=== PATIENT | female | born 1975 | race Caucasian/White ===

== ENCOUNTER 2018-08-02 18:10 | Emergency (ER) | payer BC ==
[2018-08-02] MEDS ORDERED: METOCLOPRAMIDE 10 MG/2mL INJ ONE ×2 (19:33→21:08)
[2018-08-02] MEDS ORDERED: ONDANSETRON 4 MG/2 ML VIAL ONE (19:33)
[2018-08-02] MEDS ORDERED: MECLIZINE HCL 12.5 MG TAB ONE (19:33)
[2018-08-02] MEDS ORDERED: NA CHLORIDE 0.9% 1,000 ML ONE (19:34)
--- NOTE | 2018-08-02 19:47 | RAD REPORT ---
EXAM DESCRIPTION: CT - Head Brain Wo Cont - 08/02/2018 7:41 pm CLINICAL HISTORY: elevated blood pressure;Dizziness Headache COMPARISON: No comparisons TECHNIQUE: All CT scans are performed using dose optimization technique as appropriate and may inclu de automated exposure control or mA/KV adjustment according to patient size. FINDINGS: No intracranial hemorrhage, hydrocephalus or extra-axial fluid collection.No areas of brai n edema or evidence of midline shift. The paranasal sinuses and mastoids are clear. The calvarium is intact. IMPRESSION: No acute intracranial abnormality.
[2018-08-02 19:50] LABS: Urine Blood TRACE (NEG); Urine Glucose NEGATIVE (NEG); Urine Protein NEGATIVE (NEG); Urine pH 6.5 (5.0-7.0)
[2018-08-02 19:55] LABS: Absolute Lymphocytes (CBC) 2.1 K/uL (0.7-4.9); Absolute Monocytes 0.4 K/uL (0.1-1.3); Absolute Neutrophil 4.4 K/uL (1.8-8.0); Basophils % 0.6 % (0-1.3); Hematocrit 43.7 % (36.0-45.0); Lymphocytes % 29.1 % (15.3-44.8); MCH 30.4 pg (27.0-35.0); MCV 90.8 fL (80-100); MPV 7.9 fL (7.6-11.3); Monocytes % 5.6 % (3.3-12.3); Protime INR 0.84; RBC Red Blood Cell Count 4.81 M/uL (3.86-4.86)
[2018-08-02 20:19] LABS: ALT/SGPT 28 U/L (12-78); AST/SGOT 19 U/L (15-37); Albumin 4.8 g/dL (3.4-5.0); Alkaline Phosphatase 68 U/L (45-117); BUN Blood Urea Nitrogen 10 mg/dL (7-18); Bicarbonate 27 mmol/L (21-32); Bilirubin Direct 0.1 mg/dL (0-0.2); Bilirubin Total 0.4 mg/dL (0.2-1.0); Glucose Level 91 mg/dL (74-106); Magnesium 2.4 mg/dL (1.8-2.4); Potassium 3.7 mmol/L (3.5-5.1); Protein, Total 8.5 g/dL (6.4-8.2); Sodium Level 143 mmol/L (136-145); Troponin (Emerg Dept Use Only) < 0.02 ng/mL (0.0-0.045)
[2018-08-02 20:20] LABS: Urine Bacteria 20-50 /HPF (<20); Urine RBC <5 /HPF (NONE SEEN)
[2018-08-02 20:21] LABS: Urine Culture Reflex Order NOT NEEDED
[2018-08-02] MEDS ORDERED: DEXAMETHASONE 10 MG/ML VIAL ONE (21:07)
[2018-08-02] MEDS ORDERED: NA CHLORIDE 0.9% 500 ML ONE (21:08)
[2018-08-02] MEDS ORDERED: NA CHLORIDE 0.9% 50 ML IV ONE (21:08)
--- NOTE | 2018-08-02 21:34 | EDPHYS ---
Physician Documentation [facility] Name: Nunu Barnett Age: 42 yrs Sex: Female : 1975 Arrival Date: 08/02/2018 Time: 18:13 Bed 17 Private MD: Mary Emery K ED Physician Roberto Gee HPI: 08/02 19:25 This 42 yrs old Female presents to ER via Ambulatory with complaints of High cp Blood Pressure, Dizziness, Fever. 19:25 The patient has elevated blood pressure and discovered this at home. Onset: The cp symptoms/episode began/occurred today. Associated signs and symptoms: Pertinent positives: dizziness, headache, nausea, subjective fever, Pertinent negatives: chest pain, visual changes, vomiting. 19:25 Severity of symptoms: in the emergency department the blood pressure is unchanged. 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 - Social history:: Smoking status: Patient/guardian denies using tobacco. - Ebola Screening: : Patient negative for fever greater than or equal to 101.5 degrees Fahrenheit, and additional compatible Ebola Virus Disease symptoms Patient denies exposure to infectious person Patient denies travel to an Ebola-affected area in the 21 days before illness onset No symptoms or risks identified at this time. ROS: 19:33 Constitutional: Negative for body aches, chills, fever, poor PO intake. cp 19:33 Eyes: Negative for injury, pain, redness, and discharge. cp 19:33 ENT: Negative for drainage from ear(s), ear pain, sore throat, difficulty swallowing, difficulty handling secretions. 19:33 Neck: Negative for pain with movement, pain at rest, stiffness, swollen nodes, tenderness. 19:33 Cardiovascular: Negative for chest pain, edema, palpitations. 19:33 Respiratory: Negative for cough, shortness of breath, wheezing. 19:33 Abdomen/GI: Positive for nausea, Negative for abdominal pain, vomiting, diarrhea, constipation. 19:33 : Negative for urinary symptoms. 19:33 Neuro: Positive for dizziness, headache, Negative for altered mental status, numbness, weakness. 19:33 All other systems are negative. Exam: 19:35 ECG was reviewed by the Attending Physician. cp 19:38 Constitutional: The patient appears in no acute distress, alert, awake, cp non-diaphoretic, non-toxic, well developed, well nourished. 19:38 Head/Face: Normocephalic, atraumatic. Eyes: Pupils equal round and reactive to light, cp extra-ocular motions intact. Lids and lashes normal. Conjunctiva and sclera are non-icteric and not injected. Cornea within normal limits. Periorbital areas with no swelling, redness, or edema. ENT: Nares patent. No nasal discharge, no septal abnormalities noted. Tympanic membranes are normal and external auditory canals are clear. Oropharynx with no redness, swelling, or masses, exudates, or evidence of obstruction, uvula midline. Mucous membranes moist. Neck: Trachea midline, no thyromegaly or masses palpated, and no cervical lymphadenopathy. Supple, full range of motion without nuchal rigidity, or vertebral point tenderness. No Meningismus. Chest/axilla: Normal chest wall appearance and motion. Nontender with no deformity. No lesions are appreciated. 19:38 Cardiovascular: Rate: normal, Rhythm: regular, Pulses: Pulses are 2+ in right radial artery and left radial artery. Heart sounds: murmur, not appreciated, rub, not appreciated, gallop, not appreciated, Edema: is not appreciated, JVD: is not appreciated. 19:38 Respiratory: the patient does not display signs of respiratory distress, Respirations: normal, no use of accessory muscles, no retractions, no splinting, no tachypnea, labored breathing, is not present, Breath sounds: are clear throughout, no decreased breath sounds, no stridor, no wheezing. 19:38 Abdomen/GI: Inspection: abdomen appears normal, Bowel sounds: active, all quadrants, Palpation: abdomen is soft and non-tender, in all quadrants. 19:38 Back: pain, is absent, ROM is normal. 19:38 Skin: cellulitis, is not appreciated, no rash present. 19:38 Neuro: Orientation: to person, place \T\ time. Mentation: lucid, able to follow commands, Cerebellar function: is grossly normal, Motor: moves all fours, strength is normal, Sensation: is normal. Vital Signs: 18:22 BP 179 / 105; Pulse 84; Resp 17; Temp 97.7; Pulse Ox 99% on R/A; Weight 56.7 kg; Height aj 5 ft. 7 in. (170.18 cm); 19:30 BP 158 / 90; Pulse 78; Resp 15 S; Pulse Ox 99% on R/A; cc3 20:05 BP 147 / 104; Pulse 71; Resp 13 S; Pulse Ox 100% on R/A; cc3 21:29 BP 137 / 87; Pulse 91; Resp 14 S; Pulse Ox 98% on R/A; cc3 18:22 Body Mass Index 19.58 (56.70 kg, 170.18 cm) aj MDM: 19:11 Patient medically screened. cp 21:33 Data reviewed: vital signs, nurses notes, lab test result(s), EKG, radiologic studies, cp CT scan. 21:33 Differential diagnosis: hypertensive crisis, Malignant HTN, CVA, intracerebral cp hemorrhage. Test interpretation: by ED physician or midlevel provider: ECG. Counseling: I had a detailed discussion with the patient and/or guardian regarding: the historical points, exam findings, and any diagnostic results supporting the discharge/admit diagnosis, the presence of at least one elevated blood pressure reading (>120/80) during this emergency department visit, lab results, radiology results, the need for outpatient follow up, a family practitioner, to return to the emergency department if symptoms worsen or persist or if there are any questions or concerns that arise at home. Response to treatment: the patient's symptoms have markedly improved after treatment, VSS. Blood pressure and headache improved. Will discharge to home for continued monitoring. 08/02 19:18 Order name: PT-INR; Complete Time: 20:23 cp 08/02 19:18 Order name: Basic Metabolic Panel; Complete Time: 20:23 cp 08/02 20:23 Interpretation: Normal except: CL 109; GFR 79. cp 08/02 19:18 Order name: CBC with Diff; Complete Time: 20:23 cp 08/02 19:18 Order name: LFT's; Complete Time: 20:23 cp 08/02 19:18 Order name: Magnesium; Complete Time: 20:23 cp 08/02 19:18 Order name: Troponin (emerg Dept Use Only); Complete Time: 20:23 cp 08/02 19:19 Order name: CT Head Brain wo Cont; Complete Time: 19:50 cp 08/02 19:50 Interpretation: Report reviewed. cp 08/02 19:42 Order name: Urine Microscopic Only; Complete Time: 20:23 cc 08/02 20:24 Interpretation: Normal except: UWBC 5-10; UBACT 20-50; SQEPI 10-20. cp 08/02 19:42 Order name: Urine Culture cc 08/02 19:48 Order name: Urine Dipstick--Ancillary (enter results); Complete Time: 20:23 ms 08/02 20:24 Interpretation: UBLD TRACE; UESTR TRACE. cp 08/02 19:48 Order name: Urine --Ancillary (enter results); Complete Time: 20:23 ms 08/02 19:18 Order name: EKG; Complete Time: 19:18 cp 08/02 19:18 Order name: Cardiac monitoring; Complete Time: 19:40 cp 08/02 19:18 Order name: EKG - Nurse/Tech; Complete Time: 19:40 cp 08/02 19:18 Order name: IV Saline Lock; Complete Time: 19:40 cp 08/02 19:18 Order name: Labs collected and sent; Complete Time: 19:40 cp 08/02 19:18 Order name: O2 Per Protocol; Complete Time: 19:40 cp 08/02 19:18 Order name: O2 Sat Monitoring; Complete Time: 19:40 cp 08/02 19:18 Order name: Urine Dipstick-Ancillary (obtain specimen); Complete Time: 19:42 cp 08/02 19:18 Order name: Urine Test (obtain specimen); Complete Time: 19:42 cp EC:35 Rate is 69 beats/min. Rhythm is regular. [place] interval is normal. QRS interval is normal. cp QT interval is normal. T waves are Inverted in leads V2, V3. Interpreted by me. Reviewed by me. Administered Medications: 19:25 Drug: Meclizine 25 mg Route: PO; cc3 20:00 Follow up: Response: No adverse reaction cc3 19:30 Drug: Zofran 4 mg Route: IVP; Site: left antecubital; cc3 20:00 Follow up: Response: No adverse reaction; Nausea is decreased cc3 19:30 Drug: NS 0.9% 1000 ml Route: IV; Rate: 1 bolus; Site: left antecubital; cc3 20:45 Follow up: Response: No adverse reaction; IV Status: Completed infusion; IV Intake: cc3 1000ml 19:39 Not Given (Patient Refused): Reglan 10 mg IVP once; over 1 to 2 minutes cc3 21:00 Drug: NS 0.9% 500 ml Route: IV; Rate: bolus; Site: left antecubital; cc3 21:45 Follow up: Response: No adverse reaction; IV Status: Completed infusion; IV Intake: cc3 500ml 21:05 Drug: Decadron - Dexamethasone 10 mg Route: IVP; Site: left antecubital; cc3 21:45 Follow up: Response: No adverse reaction cc3 21:08 Drug: Reglan 20 mg Route: IVP; Site: left antecubital; cc3 21:45 Follow up: Response: No adverse reaction; Pain is decreased cc3 Disposition: 08/03 13:21 Co-signature as Attending Physician, Roberto Gee MD I agree with the assessment and kdr plan of care. Disposition: 08/02/18 21:34 Discharged to Home. Impression: Headache, Hypertensive heart disease, Dizziness and giddiness. - Condition is Stable. - Discharge Instructions: Dizziness, General Headache Without Cause, How to Take Your Blood Pressure, Ulrt-bi-[id number], Managing Your Hypertension. - Prescriptions for Fiorinal 50- 325-40 mg Oral Capsule - take 1 capsule by ORAL route every 4 hours As needed - not to exceed 6 capsules per day; 20 capsule. Meclizine 25 mg Oral Tablet - take 1 tablet by ORAL route every 8 hours As needed; 30 tablet. Zofran 4 mg Oral Tablet - take 1 tablet by ORAL route every 12 hours As needed; 20 tablet. - Medication Reconciliation Form, Thank You Letter, Antibiotic Education, Prescription Opioid Use form. - Follow up: Mary Emery MD; When: 2 - 3 days; Reason: Recheck today's complaints. - Problem is new. - Symptoms have improved. Signatures: Dispatcher [employer] EDMS Jamia Arce RN RN Roberto Sawyer MD MD kdr Paulie Mehta PA PA Evelia Benoit cc3 Corrections: (The following items were deleted from the chart) 08/02 21:34 21:34 08/02/2018 21:34 Discharged to Home. Impression: Headache; Hypertensive heart cp disease. Condition is Stable. Forms are Medication Reconciliation Form, Thank You Letter, Antibiotic Education, Prescription Opioid Use. Follow up: Mary Emery; When: 2 - 3 days; Reason: Recheck today's complaints. Problem is new. Symptoms have improved. cp 21:50 21:34 08/02/2018 21:34 Discharged to Home. Impression: Headache; Hypertensive heart cc3 disease; Dizziness and giddiness. Condition is Stable. Discharge Instructions: Dizziness, General Headache Without Cause, How to Take Your Blood Pressure, [id number], Managing Your Hypertension. Prescriptions for Fiorinal 50-325-40 mg Oral Capsule - take 1 capsule by ORAL route every 4 hours As needed - not to exceed 6 capsules per day; 20 capsule, Meclizine 25 mg Oral Tablet - take 1 tablet by ORAL route every 8 hours As needed; 30 tablet, Zofran 4 mg Oral Tablet - take 1 tablet by ORAL route every 12 hours As needed; 20 tablet. and Forms are Medication Reconciliation Form, Thank You Letter, Antibiotic Education, Prescription Opioid Use. Follow up: Mary Emery; When: 2 - 3 days; Reason: Recheck today's complaints. Problem is new. Symptoms have improved. cp
--- NOTE | 2018-08-02 21:34 | ER ---
Nurse's Notes [facility] Name: Nunu Barnett Age: 42 yrs Sex: Female : 1975 Arrival Date: 08/02/2018 Time: 18:13 Bed 17 Private MD: Mary Emery K Diagnosis: Headache;Hypertensive heart disease;Dizziness and giddiness Presentation: 08/02 18:19 Presenting complaint: Patient states: Headache, dizziness, warm ears, and high blood aj pressure that started today. Transition of care: patient was not received from another setting of care. Onset of symptoms was August 02, 2018. Risk Assessment: Do you want to hurt yourself or someone else? Patient reports no desire to harm self or others. Initial Sepsis Screen: Does the patient meet any 2 criteria? No. Patient's initial sepsis screen is negative. Does the patient have a suspected source of infection? No. Patient's initial sepsis screen is negative. Care prior to arrival: None. 18:19 Method Of Arrival: Ambulatory aj 18:19 Acuity: COLLEEN 2 aj Triage Assessment: 18:22 General: Appears in no apparent distress. comfortable, Behavior is calm, cooperative, aj appropriate for age. Pain: Complains of pain in face and scalp. 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 Full function Gait is steady, Speech is normal, Facial symmetry appears normal, Pupils are PERRLA, Reports headache. Respiratory: Airway is patent Respiratory effort is even, unlabored, Respiratory pattern is regular, symmetrical. Derm: Skin is intact, is healthy with good turgor, Skin is pink, warm \T\ dry. normal. 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 - Social history:: Smoking status: Patient/guardian denies using tobacco. - Ebola Screening: : Patient negative for fever greater than or equal to 101.5 degrees Fahrenheit, and additional compatible Ebola Virus Disease symptoms Patient denies exposure to infectious person Patient denies travel to an Ebola-affected area in the 21 days before illness onset No symptoms or risks identified at this time. Screenin:05 Abuse screen: Denies threats or abuse. Denies injuries from another. Nutritional cc3 screening: No deficits noted. Tuberculosis screening: No symptoms or risk factors identified. Fall Risk Ambulatory Aid- None/Bed Rest/Nurse Assist (0 pts). Gait- Normal/Bed Rest/Wheelchair (0 pts) Mental Status- Oriented to own ability (0 pts). Assessment: 19:05 Reassessment: Patient appears in no apparent distress at this time. Patient and/or cc3 family updated on plan of care and expected duration. Pain level reassessed. Patient is alert, oriented x 3, equal unlabored respirations, skin warm/dry/pink. Received this female patient from morning shift [facility] as a case of high blood pressure reading, dizziness and fever; still to be seen by the physician. 19:45 Reassessment: Patient came back from CT scan department and CT scan of head procedure cc3 was done as ordered, awaiting result. 20:30 Reassessment: Patient appears in no apparent distress at this time. Patient and/or cc3 family updated on plan of care and expected duration. Pain level reassessed. Patient is alert, oriented x 3, equal unlabored respirations, skin warm/dry/pink. 21:45 Reassessment: Patient appears in no apparent distress at this time. Patient and/or cc3 family updated on plan of care and expected duration. Pain level reassessed. Patient is alert, oriented x 3, equal unlabored respirations, skin warm/dry/pink. MILENA Mehta discharged home the patient with prescription given. IV cannula removed and patient left ER vitally stable and ambulatory with her . Vital Signs: 18:22 BP 179 / 105; Pulse 84; Resp 17; Temp 97.7; Pulse Ox 99% on R/A; Weight 56.7 kg; Height aj 5 ft. 7 in. (170.18 cm); 19:30 BP 158 / 90; Pulse 78; Resp 15 S; Pulse Ox 99% on R/A; cc3 20:05 BP 147 / 104; Pulse 71; Resp 13 S; Pulse Ox 100% on R/A; cc3 21:29 BP 137 / 87; Pulse 91; Resp 14 S; Pulse Ox 98% on R/A; cc3 18:22 Body Mass Index 19.58 (56.70 kg, 170.18 cm) aj ED Course: 18:13 Patient arrived in ED. mr 18:14 Mary Emery MD is Private Physician. mr 18:19 Triage completed. aj 18:22 Arm band placed on left wrist. Patient placed in an exam room. aj 19:05 Patient has correct armband on for positive identification. Bed in low position. Call cc3 light in reach. Side rails up X 1. 19:05 secured entrance monitor on. Pulse ox on. NIBP on. cc3 19:11 Paulie Mehta PA is PHCP. cp 19:11 Roberto Gee MD is Attending Physician. cp 19:30 Initial lab(s) drawn, by hi, sent to lab. Inserted saline lock: 20 gauge in left cc antecubital area, using aseptic technique. Blood collected. 19:37 Urine collected: clean catch specimen, clear. cc 19:41 CT completed. Patient tolerated procedure well. Patient moved to CT. Patient moved back nv from CT. 19:42 CT Head Brain wo Cont In Process Unspecified. EDMS 19:43 EKG done, by ED staff, reviewed by Paulie ABBOTT. cc 21:33 Mary Emery MD is Referral Physician. cp 21:45 No provider procedures requiring assistance completed. IV discontinued, intact, cc3 bleeding controlled, No redness/swelling at site. Pressure dressing applied. Administered Medications: 19:25 Drug: Meclizine 25 mg Route: PO; cc3 20:00 Follow up: Response: No adverse reaction cc3 19:30 Drug: Zofran 4 mg Route: IVP; Site: left antecubital; cc3 20:00 Follow up: Response: No adverse reaction; Nausea is decreased cc3 19:30 Drug: NS 0.9% 1000 ml Route: IV; Rate: 1 bolus; Site: left antecubital; cc3 20:45 Follow up: Response: No adverse reaction; IV Status: Completed infusion; IV Intake: cc3 1000ml 19:39 Not Given (Patient Refused): Reglan 10 mg IVP once; over 1 to 2 minutes cc3 21:00 Drug: NS 0.9% 500 ml Route: IV; Rate: bolus; Site: left antecubital; cc3 21:45 Follow up: Response: No adverse reaction; IV Status: Completed infusion; IV Intake: cc3 500ml 21:05 Drug: Decadron - Dexamethasone 10 mg Route: IVP; Site: left antecubital; cc3 21:45 Follow up: Response: No adverse reaction cc3 21:08 Drug: Reglan 20 mg Route: IVP; Site: left antecubital; cc3 21:45 Follow up: Response: No adverse reaction; Pain is decreased cc3 Intake: 20:45 IV: 1000ml; Total: 1000ml. cc3 21:45 IV: 500ml; Total: 1500ml. cc3 Outcome: 21:34 Discharge ordered by MD. cp 21:45 Discharged to home ambulatory, with family. cc3 21:45 Condition: stable 21:45 Discharge instructions given to patient, family, Instructed on discharge instructions, follow up and referral plans. medication usage, Demonstrated understanding of instructions, follow-up care, medications, Prescriptions given X 3. 21:50 Patient left the ED. cc3 Signatures: Dispatcher [employer] Jamia Sosa RN RN aj Rivera, Mary mr Christian, Jeanette cc Paulie Mehta PA PA cp Jordan, Evelia Rivera cc3 Corrections: (The following items were deleted from the chart) 20:02 19:40 Reassessment: Patient went for CT scan of the head. cc3 cc3 20:04 19:05 Patient has correct armband on for positive identification. Bed in low position. cc3 Call light in reach. Side rails up X 1. cc3
--- NOTE | 2018-08-03 08:33 | EKG ---
Test Date: 2018-08-02 Test Time: 19:30:00 Body Shop Technician: RANDY MEASUREMENT RESULTS: Intervals: Rate: 69 FL: 146 QRSD: 82 QT: 382 QTc: 409 [place]: P: 73 FL: 146 QRS: 66 T: 48 INTERPRETIVE STATEMENTS: Normal sinus rhythm with sinus arrhythmia Possible Left atrial enlargement Borderline ECG Compared to ECG 03/08/2016 09:12:27 No significant changes Electronically Signed On 08-03-18 08:33:11 CDT by Mega Yee
== END 2018-08-02 21:50 | disposition home or self-care (01) ==
LOC: ER 18:10
DX: I11.9 Hypertensive heart disease without heart failure (principal); R51 Headache; Z88.0 Allergy status to penicillin; Z88.2 Allergy status to sulfonamides; Z88.3 Allergy status to other anti-infective agents; Z88.5 Allergy status to narcotic agent
CPT/HCPCS: 36415; 70450; 80048; 80076; 81003; 81015; 81025; 83735; 84484; 85025; 85610; 87086; 87088; 93005; 96361; 96374; 96375; 99285; J1100; J2405; J2765; J7030

== ENCOUNTER 2018-08-27 21:08 | Emergency (ER) | payer BC ==
[2018-08-27] MEDS ORDERED: IBUPROFEN 100 MG/5 ML UCUP ONE (21:33)
[2018-08-27] MEDS ORDERED: DEXAMETHASONE 4 MG/ML VIAL ONE (21:33)
--- NOTE | 2018-08-27 23:11 | ER ---
Nurse's Notes [facility] Name: Nunu Barnett Age: 43 yrs Sex: Female : 1975 Arrival Date: 08/27/2018 Time: 21:09 Bed 19 Private MD: Mary Emery K Diagnosis: Allergy, unspecified Presentation: 08/27 21:19 Presenting complaint: Patient states: "Within the past hour, it's hard for me to lp1 breathe or swallow"; States having monthly "allergy shot" today; Benadryl last taken at 1930; No drooling noted. Transition of care: patient was not received from another setting of care. Onset: The symptoms/episode began/occurred 1 hour(s) ago. Anaphylaxis evaluation, no signs or symptoms of anaphylaxis were noted. Onset of symptoms was August 27, 2018 at 20:30. Risk Assessment: Do you want to hurt yourself or someone else? Patient reports no desire to harm self or others. Initial Sepsis Screen: Does the patient meet any 2 criteria? No. Patient's initial sepsis screen is negative. Does the patient have a suspected source of infection? No. Patient's initial sepsis screen is negative. Care prior to arrival: None. 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 - Social history:: Smoking status: Patient/guardian denies using tobacco. - Ebola Screening: : No symptoms or risks identified at this time. Screenin:21 Abuse screen: Denies threats or abuse. Denies injuries from another. Nutritional rv screening: No deficits noted. Tuberculosis screening: No symptoms or risk factors identified. Fall Risk None identified. Assessment: 21:20 General: Appears in no apparent distress. uncomfortable, Behavior is calm, cooperative. rv Pain: Denies pain. Neuro: Level of Consciousness is awake, alert, obeys commands, Oriented to person, place, time, situation. Cardiovascular: Capillary refill < 3 seconds. Respiratory: Airway is patent Respiratory effort is even, Breath sounds are clear bilaterally. GI: No signs and/or symptoms were reported involving the gastrointestinal system. : No signs and/or symptoms were reported regarding the genitourinary system. EENT: No signs and/or symptoms were reported regarding the EENT system. Derm: Skin is intact. Musculoskeletal: No signs and/or symptoms reported regarding the musculoskeletal system. 21:52 Reassessment: No changes from previously documented assessment. rv Vital Signs: 21:23 BP 168 / 92; Pulse 89; Resp 18; Pulse Ox 100% on R/A; Weight 58.06 kg; Height 5 ft. 7 lp1 in. (170.18 cm); Pain 0/10; 21:52 BP 147 / 78; Pulse 81 MON; Resp 17 S; Pulse Ox 100% on R/A; Pain 0/10; rv 21:23 Body Mass Index 20.05 (58.06 kg, 170.18 cm) lp1 ED Course: 21:09 Patient arrived in ED. am2 21:09 Mary Emery MD is Private Physician. am2 21:14 Danica Villalobos FNP-C is [facility]. snw 21:14 Paulie Pires MD is Attending Physician. snw 21:21 Triage completed. lp1 21:22 Arm band placed on right wrist. rv 21:22 Patient has correct armband on for positive identification. Bed in low position. Call rv light in reach. Side rails up X 1. Adult w/ patient. Pulse ox on. NIBP on. 23:10 Mary Emery MD is Referral Physician. snw 23:32 No provider procedures requiring assistance completed. Patient did not have IV access rv during this emergency room visit. Administered Medications: 21:28 Drug: Decadron - Dexamethasone 10 mg {Note: PO. mixed with motrin..} Route: IVP; Site: rv Other; 23:32 Follow up: Response: No adverse reaction rv 21:28 Drug: Motrin Suspension 4 tsp Route: PO; rv 23:32 Follow up: Response: No adverse reaction rv Outcome: 23:10 Discharge ordered by . dave 23:32 Discharged to home ambulatory. rv 23:32 Condition: good 23:32 Discharge instructions given to patient, Instructed on discharge instructions, follow up and referral plans. medication usage, Demonstrated understanding of instructions, follow-up care, medications, Prescriptions given X 2. 23:33 Patient left the ED. rv Signatures: Danica Villalobos, PROPERTY INSURANCE INSPECTOR-C PROPERTY INSURANCE INSPECTOR-Csnw Diane Reyes, RN RN lp1 Jamia Jones am2 David Peace, RN RN rv
--- NOTE | 2018-08-27 23:11 | EDPHYS ---
Physician Documentation [facility] Name: Nunu Barnett Age: 43 yrs Sex: Female : 1975 Arrival Date: 08/27/2018 Time: 21:09 Bed 19 Private MD: Mary Emery K ED Physician Paulie Pires HPI: 08/27 21:46 This 43 yrs old Female presents to ER via Ambulatory with complaints of snw Difficulty Swallowing, Allergic Reaction. 21:46 The patient presents with dysphagia, of both solids and liquids. The patient describes snw throat pain as scratchy. Onset: The symptoms/episode began/occurred gradually, today, s/p allergy shot, has been getting the shots since Oct. Severity of symptoms: At their worst the symptoms were moderate. Associated signs and symptoms: Pertinent positives: dysphagia. The patient has not experienced similar symptoms in the past. as noted. 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 - Social history:: Smoking status: Patient/guardian denies using tobacco. - Ebola Screening: : No symptoms or risks identified at this time. ROS: 21:31 Constitutional: Negative for fever, chills, and weight loss, Eyes: Negative for injury, snw pain, redness, and discharge, Neck: Negative for injury, pain, and swelling, Cardiovascular: Negative for chest pain, palpitations, and edema, Respiratory: Negative for shortness of breath, cough, wheezing, and pleuritic chest pain, Abdomen/GI: Negative for abdominal pain, nausea, vomiting, diarrhea, and constipation, Back: Negative for injury and pain, : Negative for injury, bleeding, discharge, and swelling, MS/Extremity: Negative for injury and deformity, Skin: Negative for injury, rash, and discoloration, Neuro: Negative for headache, weakness, numbness, tingling, and seizure, Psych: Negative for depression, anxiety, suicide ideation, homicidal ideation, and hallucinations. 21:31 ENT: Positive for difficulty swallowing. Exam: 21:31 Constitutional: This is a well developed, well nourished patient who is awake, alert, snw and in no acute distress. Head/Face: Normocephalic, atraumatic. Eyes: Pupils equal round and reactive to light, extra-ocular motions intact. Lids and lashes normal. Conjunctiva and sclera are non-icteric and not injected. Cornea within normal limits. Periorbital areas with no swelling, redness, or edema. Neck: Trachea midline, no thyromegaly or masses palpated, and no cervical lymphadenopathy. Supple, full range of motion without nuchal rigidity, or vertebral point tenderness. No Meningismus. Chest/axilla: Normal chest wall appearance and motion. Nontender with no deformity. No lesions are appreciated. Cardiovascular: Regular rate and rhythm with a normal S1 and S2. No gallops, murmurs, or rubs. Normal PMI, no JVD. No pulse deficits. Respiratory: Lungs have equal breath sounds bilaterally, clear to auscultation and percussion. No rales, rhonchi or wheezes noted. No increased work of breathing, no retractions or nasal flaring. Abdomen/GI: Soft, non-tender, with normal bowel sounds. No distension or tympany. No guarding or rebound. No evidence of tenderness throughout. Back: No spinal tenderness. No costovertebral tenderness. Full range of motion. Skin: Warm, dry with normal turgor. Normal color with no rashes, no lesions, and no evidence of cellulitis. MS/ Extremity: Pulses equal, no cyanosis. Neurovascular intact. Full, normal range of motion. Neuro: Awake and alert, GCS 15, oriented to person, place, time, and situation. Cranial nerves II-XII grossly intact. Motor strength 5/5 in all extremities. Sensory grossly intact. Cerebellar exam normal. Normal gait. Psych: Awake, alert, with orientation to person, place and time. Behavior, mood, and affect are within normal limits. 21:31 ENT: External ear(s): are unremarkable, Ear canal(s): are normal, TM's: are normal, Nose: is normal, Mouth: Oral mucosa: normal, Tongue: is normal, drooling, is not appreciated, Posterior pharynx: Airway: no evidence of obstruction, Voice: is normal. 22:06 Special observations: pt states s/s are no worse but not noticeably better. snw Vital Signs: 21:23 BP 168 / 92; Pulse 89; Resp 18; Pulse Ox 100% on R/A; Weight 58.06 kg; Height 5 ft. 7 lp1 in. (170.18 cm); Pain 0/10; 21:52 BP 147 / 78; Pulse 81 MON; Resp 17 S; Pulse Ox 100% on R/A; Pain 0/10; rv 21:23 Body Mass Index 20.05 (58.06 kg, 170.18 cm) lp1 MDM: 21:19 Patient medically screened. snw 23:09 Data reviewed: vital signs, nurses notes. Data interpreted: Pulse oximetry: on room air snw is 100 %. Interpretation: normal. Counseling: I had a detailed discussion with the patient and/or guardian regarding: the historical points, exam findings, and any diagnostic results supporting the discharge/admit diagnosis, the presence of at least one elevated blood pressure reading (>120/80) during this emergency department visit, the need for outpatient follow up, to return to the emergency department if symptoms worsen or persist or if there are any questions or concerns that arise at home. Response to treatment: the patient's symptoms have markedly improved after treatment, and as a result, I will discharge patient, administer steroids, prednisone. Special discussion: Based on the history and exam findings, there is no indication for further emergent testing or inpatient evaluation. I discussed with the patient/guardian the need to see the syrup mixer assistant for further evaluation of the symptoms. I discussed with the patient/guardian the need to see the primary care provider for further evaluation of the symptoms. 08/27 22:48 Order name: [facility] [place]. Order: 3ml saline neb tx snw Administered Medications: 21:28 Drug: Decadron - Dexamethasone 10 mg {Note: PO. mixed with motrin..} Route: IVP; Site: rv Other; 23:32 Follow up: Response: No adverse reaction rv 21:28 Drug: Motrin Suspension 4 tsp Route: PO; rv 23:32 Follow up: Response: No adverse reaction rv Disposition: 08/28 06:46 Co-signature as Attending Physician, Paulie Pires MD I agree with the assessment and [facility] plan of care. Disposition: 08/27/18 23:10 Discharged to Home. Impression: Allergy, unspecified. - Condition is Stable. - Discharge Instructions: Allergies, Adult. - Prescriptions for Prednisone 20 mg Oral Tablet - take 2 tablet by ORAL route once daily for 5 days; 10 tablet. Pepcid 20 mg Oral Tablet - take 1 tablet by ORAL route once daily; 20 tablet. - Work release form, Medication Reconciliation Form, Thank You Letter, Antibiotic Education, Prescription Opioid Use form. - Follow up: Mary Emery MD; When: 1 - 2 days; Reason: Recheck today's complaints, Continuance of care, Re-evaluation by your physician. Follow up: Emergency Department; When: As needed; Reason: Worsening of condition. Signatures: Paulie Pires MD MD cha Therrien, Shelly, MIGUEL-C TENT WORKER-Csnw Diane Reyes, RN RN lp1 David Peace, RN RN rv Corrections: (The following items were deleted from the chart) 08/27 23:33 23:10 08/27/2018 23:10 Discharged to Home. Impression: Allergy, unspecified. Condition rv is Stable. Forms are Medication Reconciliation Form, Thank You Letter, Antibiotic Education, Prescription Opioid Use. Follow up: Mary Emery; When: 1 - 2 days; Reason: Recheck today's complaints, Continuance of care, Re-evaluation by your physician. Follow up: Emergency Department; When: As needed; Reason: Worsening of condition. snw
== END 2018-08-27 23:33 | disposition home or self-care (01) ==
LOC: ER 21:08
DX: T78.40XA Allergy, unspecified, initial encounter (principal); X58.XXXA Exposure to other specified factors, initial encounter; I10 Essential (primary) hypertension; Z88.0 Allergy status to penicillin; Z88.2 Allergy status to sulfonamides; Z88.3 Allergy status to other anti-infective agents; Z88.6 Allergy status to analgesic agent
CPT/HCPCS: 96374; 99283

== ENCOUNTER → 2020-12-22 | Day surgery (SDC) | payer BC ==
--- NOTE | 2020-12-22 12:12 | RAD REPORT ---
EXAM DESCRIPTION: US - Follow Up Breast Axilla Ltd - 12/22/2020 10:37 am CLINICAL HISTORY: N63.0 COMPARISON: Follow Up Breast Axilla Comp dated 12/02/2020 FINDINGS: Full right breast sonography was performed including all 4 quadrants and the retroareolar region. The exam was performed as part of a pre-biopsy planning ultrasound. Radiologist performed preprocedure ultrasound demonstrated innumerable hypoechoic lesions throughout the right breast including the hypoechoic lesions of interest in the 9 o'clock position. However, the re will are more significant complex appearing cystic/debris-filled ductal elements also seen in the 12 o'clock position. It is unclear which, if any, of these lesions is potentially aggressive in etiology as the majority o f the lesions have the appearance of complicated or debris-filled cysts or ductal elements. Due to th is, MRI breasts is recommended for problem solving purposes and to elucidate a potential aggressive l esion for appropriate biopsy procedure. This was discussed with the patient in detail who understood and agreed with the plan of care. IMPRESSION: Indeterminate findings are seen for malignancy or potential biopsy. There are numerous h ypoechoic and complex appearing lesions throughout the right breast. MRI breasts is recommended for p roblem solving purposes prior to any potential percutaneous biopsy procedure. BI-RAD: 0, incomplete. MRI breasts is recommended. ResultCode: I
== END ==
LOC: FNA 09:40
PROVIDERS: ATTEND Obstetrics & Gynecology
DX: N63.10 Unspecified lump in the right breast, unspecified quadrant (principal)
CPT/HCPCS: 76642